=== PATIENT | female | born 2000 | race Hispanic/Latino ===

== ENCOUNTER 2018-06-26 01:35 | Emergency (ER) | payer OTHER ==
[~2018-06-26] VITALS: Ht 160 cm; Wt 68.0 kg
[2018-06-26 02:06] VITALS: BP 137/67
[2018-06-26] MEDS ORDERED: NS 1000ML 1,000 ML ONE (02:12)
[2018-06-26] MEDS ORDERED: ZOFRAN ONE (02:13)
[2018-06-26 02:24] LABS: BASOPHIL % 0.2 % (0.0-0.2); EOSINOPHIL # 0.1 10^3/uL (0.0-0.2); EOSINOPHIL % 0.8 % (0.0-5.0); HEMOGLOBIN 14.6 g/dL (12.4-14.8); LYMPHOCYTES # 0.8 10^3/uL (1.2-5.2); LYMPHOCYTES % 7.5 % (24.0-44.0); MEAN CELL HGB CONCENTRATION 34.1 g/dL (33-37); MEAN CORP VOLUME 90.9 fL (78-100); MEAN PLATELET VOLUME 11.3 fL (7.8-11.0); MONOCYTES # 0.7 10^3/uL (0.0-0.4); MONOCYTES % 6.6 % (5.0-12.0); NEUTROPHIL # 9.1 10^3/uL (1.8-8.0); NEUTROPHILS % 84.6 % (41.0-85.0); RED CELL DISTRIBUTION WIDTH 12.6 % (11.5-14.5); WHITE BLOOD CELL 10.7 10^3/uL (4.5-12.5)
[2018-06-26] MEDS: NS 1000ML 1,000 ML IV ONE ×2 (02:29→02:52)
[2018-06-26] MEDS: ZOFRAN IV STA (02:29)
[2018-06-26 02:40] LABS: CALCIUM 8.7 mg/dL (8.4-10.5); CARBON DIOXIDE 26.6 mmol/L (20.0-32)
--- NOTE | 2018-06-26 02:57 | ER.PDOC ---
General Chief Complaint: Abdomen Pain Stated Complaint: ABD PAIN Time seen by MD: 01:45 Source: patient Exam Limitations: no limitations History of Present Illness Initial Comments watery diarrhea approximately 4 episodes no blood and two episodes of vomiting no blood started yesterday, also has upper abdominal pain Timing/Duration: 24 hours Severity/Quality: moderate Radiation: RUQ, epigastric Associated Symptoms: diarrhea, nausea/vomiting Vital Signs First Vital Signs Date Time Temp Pulse Resp B/P (MAP) Pulse Ox O2 Delivery O2 Flow Rate FiO2 06/26/18 02:01 99.1 78 20 99 Room Air 99.1 06/26/18 02:06 137/67 (90) Last Vital Signs Date Time Temp Pulse Resp B/P (MAP) Pulse Ox O2 Delivery O2 Flow Rate FiO2 06/26/18 02:06 99.1 78 20 137/67 (90) 99 Room Air 99.1 Past Medical History Medical History: no pertinent history Surgical History: no surgical history LMP (females 10-50): 3 weeks Social History Smoking: non-smoker Alcohol Use: none Drug Use: none Constitutional: denies fever EENTM: denies tearing Respiratory: denies cough Cardiovascular: denies chest pain Gastrointestinal: denies abdominal pain Genitourinary: denies dysuria Musculoskeletal: denies back pain Skin: denies rash Psychiatric/Neurological: denies headache Endocrine: denies increased urine Hematologic/Lymphatic: denies anemia Physical Exam General Appearance: No Apparent Distress, WD/WN HEENT: PERRL/EOMI, Normal ENT Inspection Neck: Non-Tender Respiratory: chest non-tender, lungs clear Cardiovascular: Normal Peripheral Pulses, Regular Rate, Rhythm Gastrointestinal: Soft, Tenderness Back: Normal Inspection Extremities: Normal Range of Motion Neurologic/Psychiatric: payable processor II-XII NML as Tested, No Motor/Sensory Deficits Skin: Normal Color Results/Orders Results/Orders Orders - HIRA JOHN MD Cbc With Auto Diff (06/26/18 02:09) Comprehensive Metabolic Panel (06/26/18 02:09) Lipase (06/26/18 02:09) Helicobacter Pylori (06/26/18 02:09) Ct Abd/Pel With Iv Contrast (06/26/18 02:09) Urinalysis (06/26/18 02:09) Hcg Urine (06/26/18 02:09) Ondansetron Hcl (Zofran) (06/26/18 02:09) 0.9 % Sodium Chloride (Ns 1000ml) (06/26/18 02:30) 0.9 % Sodium Chloride (Ns 1000ml) (06/26/18 02:09) 0.9 % Sodium Chloride (Ns 1000ml) (06/26/18 02:12) Ondansetron Hcl (Zofran) (06/26/18 02:13) Vital Signs Date Time Temp Pulse Resp B/P (MAP) Pulse Ox O2 Delivery O2 Flow Rate FiO2 06/26/18 02:06 99.1 78 20 137/67 (90) 99 Room Air 99.1 06/26/18 02:01 99.1 78 20 99 Room Air 99.1 Administered Medications Medications (Trade) Dose Ordered Sig/Gee Route PRN Reason Start Time Stop Time Status Last Admin Dose Admin Ondansetron HCl (Zofran) 4 mg STAT STAT IV 06/26/18 02:09 06/26/18 02:12 DC 06/26/18 02:29 4 MG Sodium Chloride 1,000 ml @ 0 mls/hr Q0M ONCE IV 06/26/18 02:09 06/26/18 02:11 DC 06/26/18 02:29 0 MLS/HR Laboratory Tests Test 06/26/18 02:20 White Blood Count 10.7 10^3/uL (4.5-12.5) Red Blood Count 4.71 10^6/uL (4.00-5.20) Hemoglobin 14.6 g/dL (12.4-14.8) Hematocrit 42.8 % (36.0-46.0) Mean Corpuscular Volume 90.9 fL (78-100) Mean Corpuscular Hemoglobin 31.0 pg (26-34) Mean Corpuscular Hemoglobin Concent 34.1 g/dL (33-37) Red Cell Distribution Width 12.6 % (11.5-14.5) Platelet Count 206 10^3/uL (150-400) Mean Platelet Volume 11.3 fL (7.8-11.0) H Neutrophils (%) (Auto) 84.6 % (41.0-85.0) Lymphocytes (%) (Auto) 7.5 % (24.0-44.0) L Monocytes (%) (Auto) 6.6 % (5.0-12.0) Neutrophils # (Auto) 9.1 10^3/uL (1.8-8.0) H Lymphocytes # (Auto) 0.8 10^3/uL (1.2-5.2) L Monocytes # (Auto) 0.7 10^3/uL (0.0-0.4) H Absolute Immature Granulocyte (auto 0.03 10^3 u/L (0-2) Eosinophils % 0.8 % (0.0-5.0) Basophils % 0.2 % (0.0-0.2) Basophils # 0.0 10^3/uL (0.0-0.1) Eosinophil Count 0.1 10^3/uL (0.0-0.2) Sodium Level 139 mmol/L (132-145) Potassium Level 3.5 mmol/L (3.6-5.2) L Chloride Level 102.0 mmol/L (96-109) Carbon Dioxide Level 26.6 mmol/L (20.0-32) Anion Gap 13.9 Blood Urea Nitrogen 20 mg/dL (7-18) H Creatinine 0.73 mg/dL (0.59-1.40) Estimated GFR () 123.0 (>/=60) BUN/Creatinine Ratio 27.0 Glucose Level 116 mg/dL (70-110) H Calcium Level 8.7 mg/dL (8.4-10.5) Total Bilirubin 2.0 mg/dL (0.2-1.0) H Aspartate Amino Transferase (AST) 17 U/L (0-35) Alanine Aminotransferase (ALT) 21 U/L (12-78) Alkaline Phosphatase 71 U/L (50-136) Total Protein 7.3 g/dL (6.4-8.2) Albumin 3.9 g/dL (3.4-5.0) Globulin 3.4 Lipase 158 U/L (114-286) Percent Immature Gran (Cell Imm) 0.30 % (0.00-0.50) Helicobacter pylori Screen NEGATIVE (NEGATIVE) Progress Progress rx for zofran and tramadol Course Vitals & review Data Vital Sign - Last 24 Hours 06/26/18 06/26/18 02:01 02:06 Temp 99.1 99.1 99.1 99.1 Pulse 78 78 Resp 20 20 B/P (MAP) 137/67 (90) Pulse Ox 99 99 O2 Delivery Room Air Room Air Laboratory Tests Test 06/26/18 02:20 White Blood Count 10.7 10^3/uL Red Blood Count 4.71 10^6/uL Hemoglobin 14.6 g/dL Hematocrit 42.8 % Mean Corpuscular Volume 90.9 fL Mean Corpuscular Hemoglobin 31.0 pg Mean Corpuscular Hemoglobin Concent 34.1 g/dL Red Cell Distribution Width 12.6 % Platelet Count 206 10^3/uL Mean Platelet Volume 11.3 fL Neutrophils (%) (Auto) 84.6 % Lymphocytes (%) (Auto) 7.5 % Monocytes (%) (Auto) 6.6 % Neutrophils # (Auto) 9.1 10^3/uL Lymphocytes # (Auto) 0.8 10^3/uL Monocytes # (Auto) 0.7 10^3/uL Absolute Immature Granulocyte (auto 0.03 10^3 u/L Eosinophils % 0.8 % Basophils % 0.2 % Basophils # 0.0 10^3/uL Eosinophil Count 0.1 10^3/uL Sodium Level 139 mmol/L Potassium Level 3.5 mmol/L Chloride Level 102.0 mmol/L Carbon Dioxide Level 26.6 mmol/L Anion Gap 13.9 Blood Urea Nitrogen 20 mg/dL Creatinine 0.73 mg/dL Estimated GFR () 123.0 BUN/Creatinine Ratio 27.0 Glucose Level 116 mg/dL Calcium Level 8.7 mg/dL Total Bilirubin 2.0 mg/dL Aspartate Amino Transf (AST/SGOT) 17 U/L Alanine Aminotransferase (ALT/SGPT) 21 U/L Alkaline Phosphatase 71 U/L Total Protein 7.3 g/dL Albumin 3.9 g/dL Globulin 3.4 Lipase 158 U/L Percent Immature Gran (Cell Imm) 0.30 % Helicobacter pylori Screen NEGATIVE O2 Sat by Pulse Oximetry: 99 Departure Time of Disposition: 03:43 Disposition: 01 HOME, SELF-CARE Impression: Primary Impression: Abdominal pain Additional Impressions: Diarrhea Vomiting Condition: Improved Patient Instructions: Abdominal Pain Referrals: LYNN FRIEDMAN MD (PCP) PRIMARY CARE PROVIDER Additional Instructions: return for any worsening symptoms, you have a mild elevation in your bilirubin see your doctor for further testing. Duration or Time Spent with Pa: 20 Problem Qualifiers HIRA JOHN MD Jun 26, 2018 02:57
[2018-06-26 03:06] LABS: BILIRUBIN,URINE NEGATIVE (NEGATIVE); UROBILINOGEN,URINE NORMAL (NEGATIVE)
[2018-06-26 03:09] LABS: APPEARANCE,URINE CLEAR (CLEAR); UA COLOR YELLOW (YELLOW)
--- NOTE | 2018-06-26 03:41 | DIREP ---
PROCEDURE:CT ABD/PELVIS WITH CONTRAST TECHNIQUE:No oral contrast was given. Following the intravenous administration of contrast material, arterial phase cuts were obtained through the abdomen, followed by venous phase cuts through the abdomen and pelvis. The images were viewed at lung and soft tissue settings. Sagittal and coronal reconstructions are provided. COMPARISON:[facility], CT, CT-ABDOMEN /PELVIS W/O CONTRAST, 07/20/2012, 07:02 PM. INDICATIONS:abdominal pain FINDINGS: LOWER CHEST:The lung bases are clear. LIVER:Normal. BILIARY:Normal. PANCREAS:Normal. SPLEEN:Normal. URINARY TRACT:No hydronephrosis is present. Nephrolithiasis is not identified but cannot be excluded with certainty as dense contrast is noted within the collecting systems. ADRENALS:Normal. AORTA/VASCULAR:Normal. RETROPERITONEUM:Normal. BOWEL/MESENTERY:Normal. The appendix appears normal. ABDOMINAL WALL:Normal. PELVIS:No abnormal mass or lymphadenopathy is seen. A 1.6 cm left ovarian cyst or cystic follicle is noted. No free fluid is present within the posterior cul-de-sac. BONES:Normal. OTHER:Normal. CONCLUSION: 1. Normal exam. 2. A 1.6 cm left ovarian cyst or cystic follicle is noted but no free fluid is seen within the posterior cul-de-sac. Dictated by: Morgan Collins M.D. on 06/26/2018 at 03:37 AM
[2018-06-26 03:47] VITALS: BP 132/74
--- NOTE | 2018-06-26 03:55 | NUR ---
IV IV REMOVED CATHETER ALL INTACT. APPLIED PRESSURE TO SITE AND NO FURTHER BLEEDING. COVERED WITH BAND AID.
[2018-06-26 04:03] VITALS: BP 132/74
== END 2018-06-26 04:00 | disposition home or self-care (01) ==
LOC: ER 01:35
DX: R10.10 Upper abdominal pain, unspecified (principal); R19.7 Diarrhea, unspecified; R11.2 Nausea with vomiting, unspecified
CPT/HCPCS: 36415; 74177; 80053; 81002; 81025; 83690; 85025; 86677; 96361 ×2; 96374; 99284; J2405; J7030; Q9965